=== PATIENT | male | born 1995 | race Two or more races ===

== ENCOUNTER → 2024-06-30 | Emergency (ER) | payer OTHER ==
[~2024-06-30] VITALS: Ht 188 cm; Wt 72.0 kg
[~2024-06-30] MED LIST: BICT1TAB PO
[2024-06-30 11:51] VITALS: BP 123/74; PULSE 74; RESP 18; TEMP 98.7; O2SAT 100
[2024-06-30] MEDS: LIDOCAINE 5% TRANSDERMAL PATCH TD ONE (15:27)
[2024-06-30] MEDS: KETOROLAC TROMETHAMINE 30 MG/ML VIAL IM ONE (15:27)
[2024-06-30] MEDS: TraMADol HCL 50 MG TABLET PO ONE (15:27)
== END | disposition still patient (30) ==
LOC: EMS 11:49
DX: M54.50 Low back pain, unspecified (principal)
CPT/HCPCS: 99283; 72100; 96372; J1885